=== PATIENT | female | born 1960 | race Caucasian/White ===

== ENCOUNTER → 2018-04-26 | Outpatient (REF) | payer OTHER | LOC: M LAB REF 19:09 | PROVIDERS: ATTEND Physician Assistant Medical | DX: R10.9 Unspecified abdominal pain (principal) ==

== ENCOUNTER → 2021-11-04 | Outpatient (CLI) | payer OTHER ==
[2021-11-04 17:50] LABS: APPEARANCE, URINE HAZY (CLEAR); BACTERIA, URINE AUTO NEGATIVE (NEGATIVE); BILIRUBIN, URINE AUTO NEGATIVE (NEGATIVE); BLOOD, URINE BLOOD NEGATIVE (NEGATIVE); COLOR, URINE YELLOW (YELLOW); GLUCOSE, URINE (UA) AUTO 3+ mg/dL (NEGATIVE); KETONE, URINE AUTO NEGATIVE (NEGATIVE); LEUKOCYTE ESTERASE, URINE AUTO 1+ (NEGATIVE); MUCUS, URINE SMALL (NEGATIVE); NITRITE, URINE AUTO NEGATIVE (NEGATIVE); PROTEIN, URINE AUTO NEGATIVE (NEGATIVE); RBC, URINE AUTO 1 /HPF (0-3); SPECIFIC GRAVITY URINE AUTO 1.029 (1.002-1.035); SQUAMOUS EPITHELIAL CELL UR AU 2 /HPF (0-6); UROBILINOGEN, URINE AUTO 0.2 mg/dL (0.0-2.0); WBC, URINE AUTO 1 /HPF (0-3)
== END ==
LOC: M ADAMS 13:29
PROVIDERS: ATTEND Nurse Practitioner Family
DX: N39.498 Other specified urinary incontinence (principal)

== ENCOUNTER 2022-10-08 19:36 | Emergency (ER) | payer OTHER ==
[~2022-10-08] VITALS: Ht 162.6 cm; Wt 104.0 kg
[2022-10-08] MEDS ORDERED: LEVO75TA4 (19:48)
[2022-10-08] MEDS ORDERED: OXYB10TA23 (19:48)
[2022-10-08] MEDS ORDERED: ALBU8.5H (19:48)
[2022-10-08] MEDS ORDERED: ASPI81CH33 PO (19:48)
[2022-10-08] MEDS ORDERED: JARD1TAB3 (19:48)
[2022-10-08] MEDS ORDERED: TRES1INJ (19:48)
[2022-10-08] MEDS ORDERED: VITA100093 (19:48)
[2022-10-08] MEDS ORDERED: SEMA0.257 (19:48)
[2022-10-08] MEDS ORDERED: LISI40TA4 (19:48)
[2022-10-08] MEDS ORDERED: MONT10TA97 (19:48)
[2022-10-08] MEDS ORDERED: FLUT50SP17 (19:48)
[2022-10-08] MEDS ORDERED: OMEP-173 (19:48)
[2022-10-08] MEDS ORDERED: ROSU40TA4 (19:48)
[2022-10-08] MEDS ORDERED: JANU50TA25 (19:49)
[2022-10-08] MEDS ORDERED: NS 1,000 ML IV ONE (21:35)
[2022-10-08] MEDS ORDERED: ONDANSETRON 4MG 2ML VIAL IV ONE (21:35)
[2022-10-08] MEDS ORDERED: ACETAMINOPHEN 1000MG 100ML IV BAG IV ONE (21:45)
[2022-10-08 22:26] LABS: BASO % 0.2 % (0.0-1.0); EOS # 0.1 10^3/uL (0.0-0.5); EOS % 0.5 % (0.0-3.0); HEMOGLOBIN 13.5 g/dl (12.0-15.5); LYMPH # 2.1 10^3/uL (1.5-5.0); LYMPH % 21.5 % (24.0-44.0); MEAN CORPUSCULAR HGB CONC 31.4 g/dl (32.0-36.5); MEAN CORPUSCULAR VOLUME 89.2 fl (80.0-96.0); MONO # 0.8 10^3/uL (0.0-0.8); MONO % 8.3 % (2.0-8.0); NEUTROPHILS # 6.6 10^3/uL (1.5-8.5); NEUTROPHILS % 69.2 % (36.0-66.0); PLATELET COUNT, AUTOMATED 289 10^3/uL (150-450); RED BLOOD COUNT 4.82 10^6/uL (4.00-5.40); WHITE BLOOD COUNT 9.6 10^3/uL (4.0-10.0)
[2022-10-08 22:31] LABS: ALBUMIN 3.6 G/DL (3.2-5.2); BILIRUBIN,DIRECT 0.1 MG/DL (<0.4); BILIRUBIN,TOTAL 0.6 MG/DL (0.3-1.2); CALCIUM LEVEL 8.7 MG/DL (8.3-10.6); CREATININE FOR GFR 1.05 MG/DL (0.55-1.30); GLOMERULAR FILTRATION RATE 56.7 (>45); POTASSIUM SERUM 4.4 MMOL/L (3.5-5.1); TOTAL PROTEIN 6.9 G/DL (5.7-8.2)
[2022-10-08] MEDS ORDERED: ONDA4TAB6 PO (22:38)
[2022-10-08 22:45] VITALS: BP 103/55; TEMP 98.4; O2SAT 95
== END 2022-10-08 22:51 | disposition home or self-care (01) ==
LOC: M ED 19:36
DX: R63.0 Anorexia (principal); R51.9 Headache, unspecified; E11.9 Type 2 diabetes mellitus without complications; I10 Essential (primary) hypertension; K21.9 Gastro-esophageal reflux disease without esophagitis; J45.909 Unspecified asthma, uncomplicated; Z79.899 Other long term (current) drug therapy; Z79.51 Long term (current) use of inhaled steroids; Z79.82 Long term (current) use of aspirin; Z79.4 Long term (current) use of insulin
CPT/HCPCS: 80048; 80076; 81001; 83690; 85025; 87486; 87581; 87633; 87798; 96374; 96375; 99284; J0131; J2405